=== PATIENT | female | born 1995 | race Hispanic/Latino ===

== ENCOUNTER 2019-09-08 20:24 | Emergency (ER) | payer OTHER ==
--- OUTSIDE RECORDS SUMMARY | 2019-09-08 20:26 | XMS REPORT ---
:1995 [facility] Address [address] [place] [address] Dr. Coe [address] [place] [id number] Care Team Providers Name Role Phone Unavailable Unavailable Unavailable Problems This patient has no known problems. Allergies, Adverse Reactions, Alerts This patient has no known allergies or adverse reactions. Medications This patient has no known medications.
[2019-09-08] MEDS ORDERED: dexAMETHasone 10 MG/ML VIAL ONE (21:15)
--- NOTE | 2019-09-08 21:21 | EDPHYS ---
Physician Documentation [facility] Name: Joselyn Short Age: 24 yrs Sex: Female : 1995 Arrival Date: 09/08/2019 Time: 20:27 Bed 24 Private MD: ED Physician Sincere Puentes HPI: 09/08 20:50 This 24 yrs old Female presents to ER via Ambulatory with complaints of Poison jmm Pham. 20:50 The patient's rash thought to be caused by Dermatitis. The rash is located on the right jmm arm and left arm. Onset: The symptoms/episode began/occurred gradually. Associated signs and symptoms: Pertinent positives: burning sensation, itching, Pertinent negatives: difficulty breathing, swelling of lips, swelling of throat, swelling of tongue, vomiting. This is a 24 year old female with a history of anemia that presents to the ED with complaints of itching to her arms and face beginning this past Friday. patient states she was exposed to poison pham this past Friday. . 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 anemia; aj1 - PSHx: 20:33 None; aj1 - Immunization history:: Flu vaccine is not up to date. - Social history:: Smoking status: Patient/guardian denies using tobacco. - Ebola Screening: : Patient denies travel to an Ebola-affected area in the 21 days before illness onset. ROS: 20:50 Constitutional: Negative for fever, chills, and weight loss, Cardiovascular: Negative jmm for chest pain, palpitations, and edema, Respiratory: Negative for shortness of breath, cough, wheezing, and pleuritic chest pain. 20:50 Skin: Positive for rash. 20:50 All other systems are negative. Exam: 20:50 Constitutional: This is a well developed, well nourished patient who is awake, alert, jmm and in no acute distress. Head/Face: atraumatic. Eyes: EOMI, no conjunctival erythema appreciated ENT: Moist Mucus Membranes Neck: Trachea midline, Supple Chest/axilla: Normal chest wall appearance and motion. Cardiovascular: Regular rate and rhythm. No edema appreciated Respiratory: Normal respirations, no respiratory distress appreciated Back: Normal ROM 20:50 Skin: erythema noted to the forearms bilaterally with weeping lesions. . 20:50 Neuro: Motor: is normal. 20:50 Psych: Behavior/mood is pleasant, cooperative. Vital Signs: 20:33 BP 115 / 80; Pulse 82; Resp 18; Temp 97.5(TE); Pulse Ox 100% on R/A; Weight 104.33 kg 1 (R); Height 5 ft. 3 in. (160.02 cm) (R); 21:34 BP 119 / 79; Pulse 79; Resp 16; Temp 97.7; Pulse Ox 99% on R/A; Pain 0/10; aa1 20:33 Body Mass Index 40.74 (104.33 kg, 160.02 cm) [facility] MDM: 20:46 Patient medically screened. [facility] 21:19 Data reviewed: vital signs, nurses notes. Counseling: I had a detailed discussion with grey the patient and/or guardian regarding: the historical points, exam findings, and any diagnostic results supporting the discharge/admit diagnosis, the need for outpatient follow up, to return to the emergency department if symptoms worsen or persist or if there are any questions or concerns that arise at home. ED course: PE findings consistent with poison pham dermatitis. Will treat with oral steroids. Advised to return to the ED if symptoms worsen. Patient understood and agrees with the plan of care. . Administered Medications: 21:17 Drug: Decadron 10 mg Route: IM; Site: right ventrogluteal; tr5 21:34 Follow up: Response: No adverse reaction; Medication administered at discharge. aa1 Disposition: 09/09 06:43 Co-signature as Attending Physician, Sincere Puentse MD I agree with the assessment and tw4 plan of care. Disposition: 09/08/19 21:20 Discharged to Home. Impression: Dermatitis, unspecified. - Condition is Stable. - Discharge Instructions: Contact Dermatitis. - Prescriptions for Hydroxyzine HCl 25 mg Oral Tablet - take 1 tablet by ORAL route every 6 hours As needed; 30 tablet. Prednisone 20 mg Oral Tablet - take 2 tablets by ORAL route once daily 12 days Please take 3 tabs by mouth daily for 3 days, then 2 tabs daily for 3 days, then 1 tab daily for 3 days, then 1/2 tab teofilo for 3 days.; 20 tablet. - Medication Reconciliation Form, Thank You Letter, Antibiotic Education, Prescription Opioid Use form. - Follow up: Private Physician; When: 2 - 3 days; Reason: Recheck today's complaints, Continuance of care, Re-evaluation by your physician. Signatures: Lucina Lane RN RN aj1 Yesica Bullock RN RN aa1 Ridge Funk PA PA jmm Wadley, Terrence, MD MD tw4 Gerry Short RN RN tr5 Corrections: (The following items were deleted from the chart) 09/08 21:36 21:20 09/08/2019 21:20 Discharged to Home. Impression: Dermatitis, unspecified. aa1 Condition is Stable. Forms are Medication Reconciliation Form, Thank You Letter, Antibiotic Education, Prescription Opioid Use. Follow up: Private Physician; When: 2 - 3 days; Reason: Recheck today's complaints, Continuance of care, Re-evaluation by your physician. grey
--- NOTE | 2019-09-08 21:21 | ER ---
Nurse's Notes [facility] Name: Joselyn Short Age: 24 yrs Sex: Female : 1995 Arrival Date: 09/08/2019 Time: 20:27 Bed 24 Private MD: Diagnosis: Dermatitis, unspecified Presentation: 09/08 20:31 Presenting complaint: Patient states: She was doing yard work on Friday and got into aj1 poison josie, now the rash just keeps spreading. Rash noted to both arms, face, both legs, chest and neck. Transition of care: patient was not received from another setting of care. Onset of symptoms was September 08, 2019. Risk Assessment: Do you want to hurt yourself or someone else? Patient reports no desire to harm self or others. Initial Sepsis Screen: Does the patient meet any 2 criteria? No. Patient's initial sepsis screen is negative. Does the patient have a suspected source of infection? No. Patient's initial sepsis screen is negative. Care prior to arrival: None. 20:31 Method Of Arrival: Ambulatory aj 20:31 Acuity: JOANN 4 aj1 Triage Assessment: 20:33 General: Appears in no apparent distress. uncomfortable, Behavior is calm, cooperative, aj1 appropriate for age. Pain: Pain currently is 5 out of 10 on a pain scale. Neuro: Level of Consciousness is awake, alert, obeys commands. Cardiovascular: Patient's skin is warm and dry. Respiratory: Airway is patent Respiratory effort is even, unlabored, Respiratory pattern is regular, symmetrical. 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 anemia; aj1 - PSHx: 20:33 None; aj1 - Immunization history:: Flu vaccine is not up to date. - Social history:: Smoking status: Patient/guardian denies using tobacco. - Ebola Screening: : Patient denies travel to an Ebola-affected area in the 21 days before illness onset. Screenin:50 Abuse screen: Denies threats or abuse. Denies injuries from another. Nutritional aa1 screening: No deficits noted. Tuberculosis screening: No symptoms or risk factors identified. Fall Risk None identified. Assessment: 20:50 General: Appears in no apparent distress. comfortable, Behavior is calm, cooperative, aa1 appropriate for age. Pain: Denies pain. Neuro: Level of Consciousness is awake, alert, obeys commands, Oriented to person, place, time, situation, Moves all extremities. Full function Gait is steady, Speech is normal. Respiratory: Airway is patent Respiratory effort is even, unlabored, Respiratory pattern is regular, symmetrical. GI: No signs and/or symptoms were reported involving the gastrointestinal system. : No signs and/or symptoms were reported regarding the genitourinary system. EENT: No signs and/or symptoms were reported regarding the EENT system. Derm: Skin has lesions on BUE s/p poison josie exposure. Musculoskeletal: Circulation, motion, and sensation intact. Capillary refill < 3 seconds. 21:34 Reassessment: Patient appears in no apparent distress at this time. Patient is alert, aa1 oriented x 3, equal unlabored respirations, skin warm/dry/pink. Discussed d/c \T\ f/u instructions with pt; denies questions or concerns at this time. Ambulatory to lobby with steady gait. Vital Signs: 20:33 BP 115 / 80; Pulse 82; Resp 18; Temp 97.5(TE); Pulse Ox 100% on R/A; Weight 104.33 kg aj1 (R); Height 5 ft. 3 in. (160.02 cm) (R); 21:34 BP 119 / 79; Pulse 79; Resp 16; Temp 97.7; Pulse Ox 99% on R/A; Pain 0/10; aa1 20:33 Body Mass Index 40.74 (104.33 kg, 160.02 cm) aj1 ED Course: 20:27 Patient arrived in ED. cl3 20:32 Triage completed. aj1 20:33 Arm band placed on Patient placed in an exam room. aj1 20:38 Ridge Funk PA is PHCP. [facility] 20:38 Sincere Puentes MD is Attending Physician. [facility] 20:50 Patient has correct armband on for positive identification. Bed in low position. Call aa1 light in reach. Pulse ox on. NIBP on. 21:32 Yesica Bullock RN is Primary Nurse. aa1 21:34 No provider procedures requiring assistance completed. Patient did not have IV access aa1 during this emergency room visit. Administered Medications: 21:17 Drug: Decadron 10 mg Route: IM; Site: right ventrogluteal; tr5 21:34 Follow up: Response: No adverse reaction; Medication administered at discharge. aa1 Outcome: 21:20 Discharge ordered by MD. edmonds 21:34 Discharged to home ambulatory. aa1 21:34 Condition: good 21:34 Discharge instructions given to patient, Instructed on discharge instructions, follow up and referral plans. medication usage, wound care, Demonstrated understanding of instructions, follow-up care, medications, wound care, Prescriptions given X 2. 21:36 Patient left the ED. aa1 Signatures: Lucina Lane RN RN aj1 Yesica Bullock RN RN aa1 Ridge Funk PA PA jmm Rodriguez, Tommie, RN RN tr5 Evelio Zhong cl3
[2019-09-08 22:36] VITALS: BP 119/79; TEMP 97.7; O2SAT 99
== END 2019-09-08 21:36 | disposition home or self-care (01) ==
LOC: ER 20:24
DX: L30.9 Dermatitis, unspecified (principal)
CPT/HCPCS: 96372; 99283; J1100